=== PATIENT | female | born 1985 ===

== ENCOUNTER 2020-05-15 20:21 | Emergency (ER) | payer OTHER ==
[~2020-05-15] VITALS: Ht 165.1 cm; Wt 70.8 kg
[~2020-05-15 20:21] MED LIST: FLEXERIL5 MG PO; TUSICOF LIQUID120 ML PO; TYLENOL-CODEINE1 TAB PO
[2020-05-15] MEDS ORDERED: DICLOFENAC SODI75 MG PO (22:57)
== END 2020-05-16 01:03 | disposition home or self-care (01) ==
LOC: ER 20:21
DX: N83.291 Other ovarian cyst, right side (principal); R10.31 Right lower quadrant pain; Z03.818 Encounter for observation for suspected exposure to other biological agents ruled out

== ENCOUNTER 2021-10-22 08:25 | Outpatient (CLI) | payer OTHER ==
[~2021-10-22 08:25] MED LIST changes: +DICLOFENAC SODI75 MG PO
== END 2021-10-22 08:39 | disposition home or self-care (01) ==
LOC: SONOGRAMA 08:25
PROVIDERS: ATTEND Surgery
DX: N60.11 Diffuse cystic mastopathy of right breast (principal); N60.12 Diffuse cystic mastopathy of left breast

== ENCOUNTER 2022-11-18 10:18 | Outpatient (CLI) | payer OTHER | END 2022-11-18 10:54 | disposition home or self-care (01) | LOC: MAMO-SONO 10:18 | PROVIDERS: ATTEND Surgery | DX: N60.11 Diffuse cystic mastopathy of right breast (principal); N60.12 Diffuse cystic mastopathy of left breast ==

== ENCOUNTER 2022-12-20 12:19 | Outpatient (CLI) | payer OTHER | END 2022-12-20 12:48 | disposition home or self-care (01) | LOC: SONOGRAMA 12:19 | PROVIDERS: ATTEND Surgery | DX: D24.2 Benign neoplasm of left breast (principal) ==